=== PATIENT | male | born 2000 | race Native Hawaiian/Other Pacific Islander ===

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

== ENCOUNTER 2019-05-21 03:36 | Emergency (ER) | payer OTHER ==
[~2019-05-21] VITALS: Ht 180.3 cm; Wt 117.9 kg
[2019-05-21 04:20] VITALS: BP 151/80; TEMP 97.7
== END 2019-05-21 04:20 | disposition home or self-care (01) ==
LOC: ED 03:36
DX: H10.89 Other conjunctivitis (principal)
CPT/HCPCS: 99283

== ENCOUNTER → 2022-03-20 | Outpatient (CLI) | payer OTHER | LOC: RAD 17:01 | PROVIDERS: ATTEND Nurse Practitioner Family | DX: M79.671 Pain in right foot (principal) ==

== ENCOUNTER 2022-07-19 14:10 | Outpatient (CLI) | payer OTHER | END 2022-07-19 19:21 | disposition home or self-care (01) | LOC: RAD 14:10 | PROVIDERS: ATTEND Registered Nurse | DX: M25.531 Pain in right wrist (principal) ==